=== PATIENT | female | born 1970 | race African-American/Black ===

== ENCOUNTER 2016-10-29 09:32 | Emergency (ER) | payer MEDICAID ==
[~2016-10-29] VITALS: Ht 180.3 cm; Wt 105.7 kg
[2016-10-29 10:12] VITALS: BP 144/96
== END 2016-10-29 10:33 | disposition home or self-care (01) ==
LOC: ER 09:32
DX: B37.3 Candidiasis of vulva and vagina (principal); E11.9 Type 2 diabetes mellitus without complications
CPT/HCPCS: 82962

== ENCOUNTER 2016-11-24 21:43 | Emergency (ER) | payer MEDICAID ==
[~2016-11-24] VITALS: Ht 180.3 cm; Wt 101.2 kg
[2016-11-24 22:28] LABS: Basophils # (auto) 0 uL; Basophils % (auto) 0.4 % (0.0-2.0); Eosinophils # (auto) 0.2 uL; Eosinophils % (auto) 2.5 % (0.0-7.0); Hematocrit 45.9 % (36.0-46.0); Hemoglobin 15.4 g/dL (12.2-16.2); Lymphocytes # (auto) 3.3 uL; Lymphocytes % (auto) 36.2 % (10.0-50.0); Mean Corpuscular Hemoglobin 28.6 pg (28.0-32.0); Mean Corpuscular Hgb Conc. 33.4 g/dL (32.0-36.0); Mean Corpuscular Volume 85.4 fL (80.0-100.0); Mean Platelet Volume 8.4 fL (7.4-10.4); Monocytes # (auto) 0.5 uL; Monocytes % (auto) 5.6 % (0.0-12.0); Neutrophils % (auto) 55.3 % (37.0-80.0); Platelet Count (auto) 324 10^3/uL (140-450); Red Cell Distribution Width 13.7 % (11.6-16.0)
[2016-11-24 22:50] LABS: Albumin 3.8 g/dL (3.4-5.0); BUN/Creatinine Ratio 12.4; Bilirubin, Total 0.3 mg/dL (0.2-1.0); Potassium 3.7 mmol/L (3.5-5.1); Total Protein 7.2 g/dL (6.4-8.2)
[2016-11-25 01:32] LABS: Urine Bilirubin Negative (Negative); Urine Blood Negative /uL (Negative); Urine Color Yellow (Yellow); Urine Glucose TRACE mg/dL (Normal); Urine Mucus FEW (None Seen); Urine RBC 1 /hpf (0 - 4); Urine Squamous Epithelial Cell FEW /hpf (<5)
[2016-11-25 01:35] LABS: Urine Ketone 1+ (Negative); Urine Nitrite POSITIVE (Negative)
[2016-11-25 04:30] VITALS: BP 148/78
== END 2016-11-25 04:49 | disposition home or self-care (01) ==
LOC: ER 21:47
DX: N39.0 Urinary tract infection, site not specified (principal); E11.9 Type 2 diabetes mellitus without complications; I10 Essential (primary) hypertension; Z88.0 Allergy status to penicillin
CPT/HCPCS: 36415; 71010; 80053; 81001; 81025; 85025